=== PATIENT | female | born 1995 | race Caucasian/White ===

== ENCOUNTER 2018-10-23 20:55 | Emergency (ER) | payer MEDICAID ==
[2018-10-23 21:30] LABS: INFLUENZA A NEGATIVE (NEGATIVE); INFLUENZA B NEGATIVE (NEGATIVE)
[2018-10-23] MEDS ORDERED: IBUPROFEN 600 MG TABLET PO ONE (21:41)
[2018-10-23] MEDS ORDERED: AZITHROMYCIN 500 MG TABLET PO ONE (21:41)
--- NOTE | 2018-10-23 21:41 | Emergency Department Record ---
History of Present Illness - General Chief Complaint: Cough Stated Complaint: COUGH/COLD Time Seen by Provider: 10/23/18 21:22 Source: Patient Mode of Arrival: Ambulatory Limitations: No limitations - History of Present Illness Initial Comments: pt has been sick for several days. she went [facility] then went to an urgent care and was given keflex and steroids 5 days ago. she is here tonight because she feels she is no better and actually getting worse. her cough hurts her chest. her cough is productive brown Complaint: Cough, Nasal congestion, Sore throat Onset/Timin -: Days(s) Consistency: Getting worse Improves With: Nothing Worsens With: Nothing Context: Sick contacts Associated Symptoms: Cough, Nasal congestion, Sore throat - Related Data Home Medications Medication Instructions Recorded Confirmed Last Taken Cephalexin 500 mg PO BID 10/23/18 10/23/18 Unknown Prednisone [Prednisone 10Mg] 10 mg PO DAILY 10/23/18 10/23/18 Unknown Previous Rx's Medication Instructions Recorded Azithromycin [Zithromax] 250 mg PO DAILY #4 tab 10/23/18 Allergies Allergy/AdvReac Type Severity Reaction Status Date / Time No Known Drug Allergies Allergy Unverified 04/08/18 16:36 Travel Screening - Travel/Exposure Within Last 30 Days Have you traveled within the last 30 days?: No Review of Systems Reviewed: No additional complaints except as noted below Constitutional: Reports: As per HPI. Denies: Chills, Fever, Malaise, Night sweats, Weakness, Weight change Eyes: Reports: As per HPI. Denies: Eye discharge, Eye pain, Photophobia, Vision change ENT: Reports: As per HPI, Congestion. Denies: Dental pain, Ear pain, Epistaxis , Hearing loss, Throat pain Respiratory: Reports: As per HPI, Cough. Denies: Dyspnea, Hemoptysis, Stridor, Wheezes Cardiovascular: Reports: As per HPI. Denies: Arrhythmia, Chest pain, Dyspnea on exertion, Edema, Murmurs, Orthopnea, Palpitations, Paroxysmal nocturnal dyspnea, Rheumatic Fever, Syncope Endocrine: Reports: As per HPI. Denies: Fatigue, Heat or cold intolerance, Polydipsia, Polyuria Gastrointestinal: Reports: As per HPI. Denies: Abdominal pain, Constipation, Diarrhea, Hematemesis, Hematochezia, Melena, Nausea, Vomiting Genitourinary: Reports: As per HPI. Denies: Abnormal menses, Discharge, Dyspareunia, Dysuria, Frequency, Hematuria, Incontinence, Retention, Urgency Musculoskeletal: Reports: As per HPI. Denies: Arthralgia, Back pain, Gout, Joint swelling, Myalgia, Neck pain Skin: Reports: As per HPI. Denies: Bruising, Change in color, Change in hair/ nails, Lesions, Pruritus, Rash Neurological: Reports: As per HPI. Denies: Abnormal gait, Confusion, Headache, Numbness, Paresthesias, Seizure, Tingling, Tremors, Vertigo, Weakness Psychiatric: Reports: As per HPI. Denies: Anxiety, Auditory hallucinations, Depression, Homicidal thoughts, Suicidal thoughts, Visual hallucinations Hematological/Lymphatic: Reports: As per HPI. Denies: Anemia, Blood Clots, Easy bleeding, Easy bruising, Swollen glands Past Medical History - SOCIAL HISTORY Smoking Status: Former smoker Alcohol Use: Rare Drug Use: None - RESPIRATORY Hx Respiratory Disorders: No - CARDIOVASCULAR Hx Cardio Disorders: No - NEURO Hx Neuro Disorders: No - GI Hx GI Disorders: No - Hx Genitourinary Disorders: No - ENDOCRINE Hx Endocrine Disorders: No - MUSCULOSKELETAL Hx Musculoskeletal Disorders: No - PSYCH Hx Psych Problems: No - HEMATOLOGY/ONCOLOGY Hx Hematology/Oncology Disorders: No Family Medical History Any Significant Family History?: No Physical Exam - General General Appearance: Alert, Oriented x3, Cooperative, Mild distress - Head Head exam: Normal inspection - Eye Eye exam: Normal appearance, PERRL, EOMI Pupils: Normal accommodation - ENT ENT exam: Normal exam, Mucous membranes moist, Normal external ear exam, Normal orophraynx, TM's normal bilaterally Ear exam: Normal external inspection. negative: External canal tenderness Nasal Exam: Normal inspection. negative: Discharge, Sinus tenderness Mouth exam: Normal external inspection, Tongue normal Teeth exam: Normal inspection. negative: Dental caries Throat exam: Normal inspection. negative: Tonsillar erythema, Tonsillar exudate - Neck Neck exam: Normal inspection, Full ROM. negative: Tenderness - Respiratory Respiratory exam: Normal lung sounds bilaterally. negative: Respiratory distress - Cardiovascular Cardiovascular Exam: Regular rate, Normal rhythm, Normal heart sounds - GI/Abdominal GI/Abdominal exam: Soft, Normal bowel sounds. negative: Tenderness - Rectal Rectal exam: Deferred - exam: Deferred - Extremities Extremities exam: Normal inspection, Full ROM, Normal capillary refill. negative: Tenderness - Back Back exam: Reports: Normal inspection, Full ROM. Denies: Muscle spasm, Rash noted, Tenderness - Neurological Neurological exam: Alert, CN II-XII intact, Normal gait, Oriented X3 - Psychiatric Psychiatric exam: Normal affect, Normal mood - Skin Skin exam: Dry, Intact, Normal color, Warm Course Vital Signs 10/23/18 21:00 Temperature 98.5 F Pulse Rate 99 H Respiratory 24 Rate Blood Pressure 150/72 Pulse Ox 99 Medical Decision Making - Lab Data Lab Results 10/23/18 Range/Units 21:30 Influenza Type A Ag Negative (NEGATIVE) Influenza Type B Ag Negative (NEGATIVE) Disposition Disposition: Discharge Clinical Impression: Bronchitis Disposition: Home, Self-Care Condition: (1) Good Instructions: Cold Symptoms (ED), Acute Bronchitis (ED) Additional Instructions: follow up with family doctor this week. return sooner if worse. push fluids. motrin for pain with food. stop keflex Prescriptions: Azithromycin [Zithromax] 250 mg PO DAILY #4 tab Forms: Patient Portal Access, Return to Work/School Quality - Quality Measures Quality Measures: N/A - Blood Pressure Screening Does Patient Have Any of the Following: No Blood Pressure Classification: Hypertensive Reading Systolic Measurement: 150 Diastolic Measurement: 72 Screening for High Blood Pressure: < First Hypertensive BP, F/U Documented > [ G8950] First Hypertensive Follow-up Interventions: Follow-up with rescreen GT 1 day and LT 4 weeks.
--- NOTE | 2018-10-24 10:31 | RADIOLOGY REPORT ---
DATE: 10/23/2018. EXAM: TWO-VIEW CHEST. HISTORY: COUGH/COLD. TECHNIQUE: Two views of the chest. COMPARISON: None. FINDINGS: The cardiac silhouette is within normal size limits. No focal pulmonary consolidation. No pleural effusion or pneumothorax. IMPRESSION: NO ACUTE LUNG FINDINGS. JOB NUMBER: [id number] MTDD
== END 2018-10-23 22:15 | disposition home or self-care (01) ==
LOC: ER 20:55
DX: J20.9 Acute bronchitis, unspecified (principal); Z87.891 Personal history of nicotine dependence
CPT/HCPCS: 71046; 87400; 99283

== ENCOUNTER 2018-12-24 18:34 | Emergency (ER) | payer MEDICAID ==
[2018-12-24 19:54] LABS: URINE APPEARANCE CLEAR; URINE BILIRUBIN NEGATIVE (NEGATIVE); URINE BLOOD TRACE-I (NEGATIVE); URINE COLOR YELLOW; URINE GLUCOSE (UA) NEGATIVE (NEGATIVE); URINE KETONE NEGATIVE (NEGATIVE); URINE LEUKOCYTE ESTERASE NEGATIVE (NEGATIVE); URINE NITRITE NEGATIVE (NEGATIVE); URINE PROTEIN NEGATIVE (NEGATIVE); URINE UROBILINOGEN 0.2 E.U./dL (0.20 - 1.00)
[2018-12-24 19:56] LABS: HCG,QUALITATIVE URINE NEGATIVE (NEGATIVE)
[2018-12-24 20:02] LABS: URINE BACTERIA FEW; URINE EPITHELIAL CELLS >50 (FEW); URINE RBC 0 - 2 (NONE SEEN); URINE WBC 0 - 2 (0-2/hpf)
[2018-12-24 20:28] LABS: BASO % 0.4 % (0-6); EOS % 1.5 % (0-6); HEMATOCRIT 40.4 % (35.0-47.0); HEMOGLOBIN 13.6 gm/dl (11.6-16.0); LYMPH % 22.6 % (16-45); MEAN CELL VOLUME 89.8 fl (81-97); MEAN CORPUSCULAR HEMOGLOBIN 30.2 pg (27-33); MEAN CORPUSCULAR HGB CONC 33.7 g/dl (32-36); MEAN PLATELET VOLUME 10.2 fl (7.4-10.4); MONO % 4.5 % (0-9); PLATELET COUNT 291 K/uL (130-400); RED CELL DISTRIBUTION WIDTH 12.8 % (11.5-14.5); WHITE BLOOD COUNT W/O DIFF 9.4 K/uL (4.2-12.2)
[2018-12-24 20:37] LABS: BLOOD UREA NITROGEN 15 mg/dL (6-20); CREATININE 0.5 mg/dL (0.5-0.9); EST GLOMERULAR FILTRATION RATE > 60 mL/min
[2018-12-24 20:40] LABS: GLUCOSE,RANDOM 83 mg/dL (74-109)
--- NOTE | 2018-12-24 21:49 | Emergency Department Record ---
History of Present Illness - General Chief Complaint: Abdominal Pain Stated Complaint: ABDOMINAL PAIN Time Seen by Provider: 12/24/18 19:48 Source: Patient Mode of Arrival: Ambulatory Limitations: No limitations - History of Present Illness Initial Comments: pt c/o suprapubic pain and llq pain. she has n but no v/c/d. her lmp was light. she has no uti symptoms and no unusual vag discharge MD Complaint: Abdominal pain Onset/Timin -: Days(s) Location: LLQ Radiation: None Migration to: No migration Severity: Mild Severity scale (1-10): 5 Quality: Aching Consistency: Constant Improves With: Nothing Worsens With: Other Associated Symptoms: Nausea - Related Data LMP (females 10-50): Last week Patient : (UNKNOWN) Allergies Allergy/AdvReac Type Severity Reaction Status Date / Time No Known Drug Allergies Allergy Unverified 04/08/18 16:36 Travel Screening - Travel/Exposure Within Last 30 Days Have you traveled within the last 30 days?: No - Travel Symptoms Symptom Screening: None Review of Systems Reviewed: No additional complaints except as noted below Constitutional: Reports: As per HPI. Denies: Chills, Fever, Malaise, Night sweats, Weakness, Weight change Eyes: Reports: As per HPI. Denies: Eye discharge, Eye pain, Photophobia, Vision change ENT: Reports: As per HPI. Denies: Congestion, Dental pain, Ear pain, Epistaxis , Hearing loss, Throat pain Respiratory: Reports: As per HPI. Denies: Cough, Dyspnea, Hemoptysis, Stridor, Wheezes Cardiovascular: Reports: As per HPI. Denies: Arrhythmia, Chest pain, Dyspnea on exertion, Edema, Murmurs, Orthopnea, Palpitations, Paroxysmal nocturnal dyspnea, Rheumatic Fever, Syncope Endocrine: Reports: As per HPI. Denies: Fatigue, Heat or cold intolerance, Polydipsia, Polyuria Gastrointestinal: Reports: As per HPI, Abdominal pain. Denies: Constipation, Diarrhea, Hematemesis, Hematochezia, Melena, Nausea, Vomiting Genitourinary: Reports: As per HPI. Denies: Abnormal menses, Discharge, Dyspareunia, Dysuria, Frequency, Hematuria, Incontinence, Retention, Urgency Musculoskeletal: Reports: As per HPI. Denies: Arthralgia, Back pain, Gout, Joint swelling, Myalgia, Neck pain Skin: Reports: As per HPI. Denies: Bruising, Change in color, Change in hair/ nails, Lesions, Pruritus, Rash Neurological: Reports: As per HPI. Denies: Abnormal gait, Confusion, Headache, Numbness, Paresthesias, Seizure, Tingling, Tremors, Vertigo, Weakness Psychiatric: Reports: As per HPI. Denies: Anxiety, Auditory hallucinations, Depression, Homicidal thoughts, Suicidal thoughts, Visual hallucinations Hematological/Lymphatic: Reports: As per HPI. Denies: Anemia, Blood Clots, Easy bleeding, Easy bruising, Swollen glands Past Medical History - SOCIAL HISTORY Smoking Status: Former smoker Alcohol Use: Occasional Drug Use: Occasional - RESPIRATORY Hx Respiratory Disorders: No - CARDIOVASCULAR Hx Cardio Disorders: No - NEURO Hx Neuro Disorders: No - GI Hx GI Disorders: No - Hx Genitourinary Disorders: No - ENDOCRINE Hx Endocrine Disorders: No - MUSCULOSKELETAL Hx Musculoskeletal Disorders: No - PSYCH Hx Psych Problems: No - HEMATOLOGY/ONCOLOGY Hx Hematology/Oncology Disorders: No Family Medical History Any Significant Family History?: Yes Hx Heart Disease: Father Physical Exam - General General Appearance: Alert, Oriented x3, Cooperative, No acute distress - Head Head exam: Normal inspection - Eye Eye exam: Normal appearance, PERRL, EOMI Pupils: Normal accommodation - ENT ENT exam: Normal exam, Mucous membranes moist, Normal external ear exam, Normal orophraynx Ear exam: Normal external inspection. negative: External canal tenderness Nasal Exam: Normal inspection. negative: Discharge, Sinus tenderness Mouth exam: Normal external inspection, Tongue normal Teeth exam: Normal inspection. negative: Dental caries Throat exam: Normal inspection. negative: Tonsillar erythema, Tonsillar exudate - Neck Neck exam: Normal inspection, Full ROM. negative: Tenderness - Respiratory Respiratory exam: Normal lung sounds bilaterally. negative: Respiratory distress - Cardiovascular Cardiovascular Exam: Regular rate, Normal rhythm, Normal heart sounds - GI/Abdominal GI/Abdominal exam: Soft, Normal bowel sounds. negative: Tenderness - Rectal Rectal exam: Deferred - exam: Normal bimanual exam, Normal external exam, Normal speculum exam - Extremities Extremities exam: Normal inspection, Full ROM, Normal capillary refill. negative: Tenderness - Back Back exam: Reports: Normal inspection, Full ROM. Denies: Muscle spasm, Rash noted, Tenderness - Neurological Neurological exam: Alert, CN II-XII intact, Normal gait, Oriented X3 - Psychiatric Psychiatric exam: Normal affect, Normal mood - Skin Skin exam: Dry, Intact, Normal color, Warm Course Vital Signs 12/24/18 19:31 Temperature 98.6 F Pulse Rate [ 84 Pulse Ox Probe] Respiratory 16 Rate Blood Pressure 136/87 [Left Arm] Pulse Ox 99 - Reevaluation(s) Reevaluation #1: 12/24/18 21:51 ct is neg Medical Decision Making - Lab Data Result diagrams: 12/24/18 20:23 12/24/18 20:23 Lab Results 12/24/18 12/24/18 12/24/18 Range/Units 19:50 20:23 20:23 WBC 9.4 (4.2-12.2) K/uL RBC 4.50 (3.80-5.40) M/uL Hgb 13.6 (11.6-16.0) gm/dl Hct 40.4 (35.0-47.0) % MCV 89.8 (81-97) fl MCH 30.2 (27-33) pg MCHC 33.7 (32-36) g/dl RDW 12.8 (11.5-14.5) % Plt Count 291 (130-400) K/uL MPV 10.2 (7.4-10.4) fl Gran % 71.0 (47-80) % Lymphocytes % 22.6 (16-45) % Monocytes % 4.5 (0-9) % Eosinophils % 1.5 (0-6) % Basophils % 0.4 (0-6) % Sodium 140 (136-145) mmol/L Potassium 4.0 (3.4-4.5) mmol/L Chloride 107 (98-107) mmol/L Carbon Dioxide 22.0 (22-29) mmol/L Anion Gap 11.0 (7-16) BUN 15 (6-20) mg/dL Creatinine 0.5 (0.5-0.9) mg/dL Estimated GFR > 60 mL/min Random Glucose 83 (74-109) mg/dL Calcium 9.5 (8.6-10.0) mg/dL Urine Color Yellow Urine Appearance Clear Urine pH 5.5 (5.0-8.0) Ur Specific [place] >= 1.030 (1.002-1.030) Urine Protein Negative (NEGATIVE) Urine Glucose (UA) Negative (NEGATIVE) Urine Ketones Negative (NEGATIVE) Urine Blood Trace-i (NEGATIVE) Urine Nitrite Negative (NEGATIVE) Urine Bilirubin Negative (NEGATIVE) Urine Urobilinogen 0.2 (0.20 - 1.00) E.U./dL Ur Leukocyte Esterase Negative (NEGATIVE) Urine RBC 0 - 2 (NONE SEEN) Urine WBC 0 - 2 (0-2/hpf) Ur Epithelial Cells >50 (FEW) Urine Bacteria Few Urine HCG, Qual Negative (NEGATIVE) Disposition Disposition: Discharge Clinical Impression: LLQ abdominal pain Disposition: Home, Self-Care Condition: (1) Good Instructions: Abdominal Pain (ED) Additional Instructions: follow up with family doctor. return sooner if worse Forms: Patient Portal Access Quality - Quality Measures Quality Measures: N/A - Blood Pressure Screening Does Patient Have Any of the Following: No Blood Pressure Classification: Pre-Hypertensive BP Reading Systolic Measurement: 136 Diastolic Measurement: 87 Screening for High Blood Pressure: < Pre-Hypertensive BP, F/U Documented > [ G8950] Pre-Hypertensive Follow-up Interventions: Follow-up with rescreen every year.
== END 2018-12-24 22:12 | disposition home or self-care (01) ==
LOC: ER 18:34
DX: R10.32 Left lower quadrant pain (principal); R11.0 Nausea; Z87.891 Personal history of nicotine dependence
CPT/HCPCS: 99283; 99284; 85025; 80048; 81001; 81025; 74176; Q0111; 87210

== ENCOUNTER 2019-06-16 08:19 | Emergency (ER) | payer MEDICAID ==
--- NOTE | 2019-06-16 08:26 | Emergency Department Record ---
History of Present Illness - General Chief Complaint: Back Pain/Injury Stated Complaint: BACK AND ABD PAIN/9 WKS PREG Time Seen by Provider: 06/16/19 08:25 Source: Patient Mode of Arrival: Ambulatory Limitations: No limitations - History of Present Illness Initial Comments: 24 yo female presents with right side to right upper abdominal pain since yester day and right back pain for about 2 weeks. She reports she is 9 weeks . This is her second . No fevers. No changes in appetite. She has morning sickness that is unchanged. No rash. Prior was vaginal delivery. No other recent changes to her health. No dysuria, vaginal discharge, or bleeding. She does not have any lower abdominal pain or pelvic pain. Her OB is through [facility]. MD Complaint: Back pain -: Days(s) Place: Home Severity: Mild Quality: Aching Consistency: Constant Improves With: None Worsens With: Movement Context: Bending Associated Symptoms: Denies other symptoms - Related Data Home Medications Medication Instructions Recorded Confirmed Last Taken 21/Iron Fu/Folic Acid 1 each PO DAILY 06/16/19 06/16/19 Unknown [ Complete Caplet] Previous Rx's Medication Instructions Recorded Cephalexin [Keflex] 500 mg PO TID #30 cap 06/16/19 Allergies Allergy/AdvReac Type Severity Reaction Status Date / Time No Known Drug Allergies Allergy Unverified 04/08/18 16:36 Review of Systems Constitutional: Denies: Chills, Fever, Malaise, Weakness Eyes: Denies: Eye discharge ENT: Denies: Congestion, Throat pain Respiratory: Denies: Cough, Dyspnea Cardiovascular: Denies: Chest pain, Syncope Endocrine: Denies: Fatigue Gastrointestinal: Reports: As per HPI, Abdominal pain, Nausea, Vomiting (morning sickness). Denies: Diarrhea Genitourinary: Reports: As per HPI, Abnormal menses. Denies: Discharge, Dysuria, Frequency, Hematuria, Incontinence, Retention, Urgency Musculoskeletal: Reports: Back pain (2 weeks). Denies: Arthralgia Skin: Denies: Bruising, Change in color, Rash Neurological: Denies: Headache Psychiatric: Denies: Anxiety Hematological/Lymphatic: Denies: Easy bleeding, Easy bruising Past Medical History - SOCIAL HISTORY Smoking Status: Former smoker Drug Use: Occasional - RESPIRATORY Hx Respiratory Disorders: No - CARDIOVASCULAR Hx Cardio Disorders: No - NEURO Hx Neuro Disorders: No - GI Hx GI Disorders: No - Hx Genitourinary Disorders: No - ENDOCRINE Hx Endocrine Disorders: No - MUSCULOSKELETAL Hx Musculoskeletal Disorders: No - PSYCH Hx Psych Problems: No - HEMATOLOGY/ONCOLOGY Hx Hematology/Oncology Disorders: No Family Medical History Hx Heart Disease: Father Physical Exam - General General Appearance: Alert, Oriented x3, Cooperative, No acute distress Limitations: No limitations - Head Head exam: Atraumatic - Eye Eye exam: Normal appearance. negative: Conjunctival injection - ENT ENT exam: Normal exam Ear exam: Normal external inspection Nasal Exam: Normal inspection Mouth exam: Normal external inspection - Neck Neck exam: Normal inspection - Respiratory Respiratory exam: Normal lung sounds bilaterally. negative: Chest wall tenderness, Decreased breath sounds, Respiratory distress, Rhonchi, Stridor, Wheezes - Cardiovascular Cardiovascular Exam: Regular rate, Normal rhythm, Normal heart sounds - GI/Abdominal GI/Abdominal exam: Soft, Tenderness (very soft abdomen but tender RUQ, pelvic area and RLQ are soft and non tender). negative: Distended, Guarding, Rebound, Rigid - Rectal Rectal exam: Deferred - exam: Deferred - Extremities Extremities exam: Normal inspection - Back Back exam: Reports: CVA tenderness (R) - Neurological Neurological exam: Alert, Oriented X3 - Psychiatric Psychiatric exam: Normal affect, Normal mood - Skin Skin exam: Dry, Intact, Normal color, Warm Course - Reevaluation(s) Reevaluation #1: 06/16/19 08:51 Bedside US performed Single IUP identified with HR of about 125-130 The pelvic ultrasound with deep pressure is not tender as is pressure in the RLQ non tender. 06/16/19 09:25 The urinalysis was reviewed. It is consistent with findings of possible urinary tract infection. Antibiotic ordered US is still pending She is well appearing, Non ill appearing. No fever. CBC is normal 06/16/19 10:57 The US was negative for acute process. There is an anterior abdominal wall soft tissue mass of 1.7 x 2 x 5cm The patient was informed. I recommended MRI outpatient non emergent per the radiologist report. She will call her PCP. The area is non visible or palpable on examination. It is non tender in that area. Medical Decision Making - Lab Data Result diagrams: 06/16/19 08:45 06/16/19 08:45 Disposition Disposition: Discharge Clinical Impression: Urinary tract infection Qualifiers: Urinary tract infection type: site unspecified Hematuria presence: without hematuria Qualified Code(s): N39.0 - Urinary tract infection, site not specified Disposition: Home, Self-Care Condition: (1) Good Instructions: Urinary Tract Infection in (ED) Additional Instructions: Follow up tomorrow as scheduled for your first OB appointment Review this ER visit and the tests performed with your OB doctor Return to the ER for a recheck if worse, any new concerns or questions Take the prescriptions provided as directed A culture of your urine was sent to the lab that will result in about 3 days You have a soft tissue mass on the ultrasound that will need an outpatient MRI. Call your doctor this week to discuss this and the follow up Prescriptions: Cephalexin [Keflex] 500 mg PO TID #30 cap Forms: Patient Portal Access Time of Disposition: 11:01 Quality - Quality Measures Quality Measures: N/A - Blood Pressure Screening Does Patient Have Any of the Following: No Blood Pressure Classification: Pre-Hypertensive BP Reading Systolic Measurement: 129 Diastolic Measurement: 76 Screening for High Blood Pressure: < Pre-Hypertensive BP, F/U Documented > [G8950] Pre-Hypertensive Follow-up Interventions: Referral to alternative/primary care provider.
[2019-06-16 08:49] LABS: ABSOLUTE NEUTROPHIL COUNT 8.85; BASO % 0.3 % (0-6); EOS % 0.9 % (0-6); HEMATOCRIT 37.6 % (35.0-47.0); HEMOGLOBIN 12.4 gm/dl (11.6-16.0); LYMPH % 9.9 % (16-45); MEAN CELL VOLUME 90.4 fl (81-97); MEAN CORPUSCULAR HEMOGLOBIN 29.8 pg (27-33); MEAN PLATELET VOLUME 10.4 fl (7.4-10.4); MONO % 3.9 % (0-9); PLATELET COUNT 250 K/uL (130-400); RED BLOOD COUNT 4.16 M/uL (3.80-5.40); RED CELL DISTRIBUTION WIDTH 12.9 % (11.5-14.5); WHITE BLOOD COUNT W/O DIFF 10.4 K/uL (4.2-12.2)
[2019-06-16 08:50] LABS: URINE APPEARANCE SL CLOUDY; URINE BILIRUBIN NEGATIVE (NEGATIVE); URINE BLOOD MODERATE (NEGATIVE); URINE COLOR YELLOW; URINE GLUCOSE (UA) NEGATIVE (NEGATIVE); URINE KETONE NEGATIVE (NEGATIVE); URINE LEUKOCYTE ESTERASE MODERATE (NEGATIVE); URINE NITRITE NEGATIVE (NEGATIVE); URINE PROTEIN TRACE (NEGATIVE); URINE UROBILINOGEN 0.2 E.U./dL (0.20 - 1.00)
[2019-06-16 09:02] LABS: URINE AMORPHOUS SEDIMENT FEW; URINE BACTERIA FEW; URINE EPITHELIAL CELLS 0 - 2 (FEW)
[2019-06-16 09:06] LABS: HCG,QUALITATIVE URINE POSITIVE (NEGATIVE)
[2019-06-16 09:24] LABS: BLOOD UREA NITROGEN 9 mg/dL (6-20); CREATININE 0.5 mg/dL (0.5-0.9); EST GLOMERULAR FILTRATION RATE > 60 mL/min; TOTAL PROTEIN 6.9 g/dL (6.6-8.7)
[2019-06-16] MEDS ORDERED: ACETAMINOPHEN 500 MG TABLET PO ONE (09:24)
[2019-06-16] MEDS ORDERED: CEPHALEXIN 500 MG CAPSULE PO STA (09:24)
[2019-06-16 09:29] LABS: ALB/GLOB RATIO 1.5 (1.1-1.8); ALBUMIN 4.1 g/dL (4.0-5.0); ALT/SGPT 10 U/L (<33)
[2019-06-16 09:30] LABS: ALKALINE PHOSPHATASE 76 U/L (35-104); AST/SGOT 10 U/L (10.0-35.0)
[2019-06-16 09:36] LABS: GLUCOSE,RANDOM 91 mg/dL (74-109); TOTAL B-hCG 126300 mIU/mL
[2019-06-16 15:03] LABS: PLATELET ESTIMATE NORMAL (NORMAL)
--- NOTE | 2019-06-17 07:20 | ULTRASOUND REPORT ---
EXAM: LIMITED ABDOMEN ULTRASOUND HISTORY: THIS IS A 24-YEAR-OLD FEMALE WITH NAUSEA AND VOMITING, RIGHT UPPER QUADRANT PAIN. TECHNIQUE: Limited ultrasound of the abdomen was conducted utilizing real-time dale and color scale sonographic imaging in the transabdominal approach. FINDINGS: The visualized head, neck and body of the pancreas appear within normal limits, the pancreatic tail and portions of the head are obscured by overlying bowel gas. The liver measures up to 15 cm in CC dimension, no contour nodularity is identified. No evidence of significant hepatic steatosis. No discrete hepatic mass is identified. Flow is noted within the portal vein. The right kidney measures up to 12 x 4 x 4 cm, no hydronephrosis or obvious calculus. The gallbladder demonstrates no echogenic cholelithiasis, significant distention, or pericholecystic fluid. A negative sonographic Flynn's sign was elicited. The common bile duct measures up to 3 mm. There is a heterogeneous hypoechoic avascular mass involving the midline anterior abdominal wall measuring up to 1.7 x 5.3 x 2.0 cm. IMPRESSION: 1. ELONGATED HETEROGENEOUS HYPOECHOIC AVASCULAR MIDLINE ABDOMINAL WALL MASS MEASURING UP TO 1.7 X 5.3 X 2.0 CM. RECOMMEND NONEMERGENT MRI FOR FURTHER CHARACTERIZATION. 2. OTHERWISE, NO ACUTE INTRAABDOMINAL PATHOLOGIC PROCESS. NO EVIDENCE OF CHOLELITHIASIS, ACUTE CHOLECYSTITIS OR BILIARY DUCTAL DILATATION. JOB NUMBER: [id number] MTDD
== END 2019-06-16 11:09 | disposition home or self-care (01) ==
LOC: ER 08:19
DX: O23.41 Unspecified infection of urinary tract in pregnancy, first trimester (principal); R10.11 Right upper quadrant pain; M54.89 Other dorsalgia; R19.09 Other intra-abdominal and pelvic swelling, mass and lump; Z3A.09 9 weeks gestation of pregnancy; Z87.891 Personal history of nicotine dependence
CPT/HCPCS: 76705; 80053; 81001; 81025; 84702; 85027; 99284